=== PATIENT | female | born 1950 | race Caucasian/White ===

== ENCOUNTER 2019-03-20 09:20 | Day surgery (SDC) | payer OTHER ==
[2019-03-20] VITALS (10 sets, daily range): BP systolic 107–136; BP diastolic 59–79; PULSE 66–91; RESP 16–18; Ht 165.1 cm; Wt 94.6 kg
[~2019-03-20] VITALS: Ht 165.1 cm; Wt 94.6 kg
[2019-03-20] MEDS ORDERED: OXYC-431 PO (09:53)
[2019-03-20] MEDS ORDERED: METO-448 PO (09:54)
[2019-03-20] MEDS ORDERED: APIX5TAB PO (09:55)
[2019-03-20] MEDS ORDERED: CHOL100062 PO (09:55)
[2019-03-20] MEDS ORDERED: OMEG-135 PO (09:56)
[2019-03-20] MEDS ORDERED: DILT120C77 PO (09:56)
[2019-03-20] MEDS ORDERED: CEFAZOLIN 2 GM/50 ML (PMX) 50 ML IVPB SCH (10:30)
--- NOTE | 2019-03-20 11:24 | PREAC ---
Date/Time of Note Date/Time of Note DATE: 03/20/19 TIME: 11:22 Anesthesia Eval and Record Evaluation Time Pre-Procedure Interview DATE: 03/20/19 TIME: 11:22 Age 68 Sex female NPO: 8 hrs Preoperative diagnosis L5 compression fracture Planned procedure L5 vertebral augmentation/kyphoplasty Past Medical History Past Medical History: Includes Cardio: HTN, Arrythmia (atrial fibrillation) Endo: Other (hyperparathyroidism) Pulm: Smoking Hx, COPD, Other (history of lung cancer) GI: Obesity, Other (diverticulosis) Surgery & Anesthesia Issues No known issue Meds Anticoagulation: Yes Beta Lissa within 24 hr: Yes Reason Beta Lissa not given: Bradycarida, Hypotension Reported Medications [place]-3 Fatty Acids/Fish Oil (Fish Oil 1,000 mg Capsule) 1 Each Capsule, 1 EACH PO DAILY, CAP 03/20/19 Diltiazem Hcl* (Cardizem CD*) 120 Mg Cap.sr.24h, 120 MG PO DAILY, #30 CAP 03/20/19 Cholecalciferol* (Vitamin D3*) 1,000 Unit Tablet, 1000 UNIT PO DAILY, TAB 03/20/19 Apixaban* (Eliquis*) 5 Mg Tablet, 5 MG PO BID, TAB 03/20/19 Metoprolol Tartrate* (Lopressor*) 25 Mg Tab, 25 MG PO BID, #60 TAB 03/20/19 Oxycodone HCl/Acetaminophen (Oxycodone-Acetaminophen 10-325) 1 Each Tablet, 1 EACH PO Q6 PRN for PAIN, TAB 03/20/19 Current Medications Cefazolin Sodium/ Dextrose 50 ml @ 100 mls/hr PRE-OP IVPB ; Start 03/20/19 at 10:30; Stop 03/20/19 at 15:00 Meds reviewed: Yes Allergies Coded Allergies: No Known Allergy (Unverified , 03/20/19) Allergies Reviewed: Yes Labs/Studies Labs Reviewed: Reviewed by anesthesiologist Result Diagram: 03/20/19 1036 03/20/19 1036 Laboratory Tests 03/20/19 10:36 test: N/A Studies: ECG, CXR, Stress test Pre-procedure Exam Last vitals Vital Signs Date Temp Pulse Resp B/P (MAP) Pulse Ox O2 O2 Flow FiO2 Time Delivery Rate 03/20/19 97.1 91 16 120/77 94 Room Air 10:31 (91) Airway: Adequate mouth opening, Adequate thyromental dist Mallampati: Mallampati II Teeth: Normal Lung: Normal Heart: Normal ASA Physical Status ASA physical status: 3 Emergency: None Planned Anesthetic General/MAC: Mask Planned Pain Management Parenteral pain med, Local by surgeon Pre-operative Attestations Prior to commencing anesthesia and surgery, the patient was re-evaluated, there was verification of: *The patient's identity *The results of appropriate recent lab work and preoperative vital signs *The above evaluation not changing prior to induction *Anesthetic plan, risk benefits, alternative and complications discussed with patient/family; questions answered; patient/family understands, accepts and wishes to proceed. АНДРЕЙ NICOLAS MD Mar 20, 2019 11:24
[2019-03-20] MEDS ORDERED: PROCHLORPERAZINE 10 MG INJ IV PRN (11:30)
[2019-03-20] MEDS ORDERED: HYDROmorphONE 1 MG/5 ML IV SYRINGE IV PRN ×3 (11:30)
[2019-03-20] MEDS ORDERED: hydrALAzine 20 MG INJ IV PRN (11:30)
[2019-03-20] MEDS ORDERED: DIPHENHYDRAMINE 50 MG INJ IV PRN (11:30)
[2019-03-20] MEDS ORDERED: LABETALOL HCL 20MG INJ IV PRN (11:30)
[2019-03-20] MEDS ORDERED: BUPIVACAINE 0.5% (SDV) 30 ML INJ ONE (11:30)
[2019-03-20] MEDS ORDERED: MEPERIDINE 25 MG INJ IV PRN (11:30)
[2019-03-20] MEDS ORDERED: ONDANSETRON 4 MG INJ IV PRN (11:30)
[2019-03-20] MEDS ORDERED: FENTAnyl 50 MCG/ML VIAL IV PRN (11:30)
[2019-03-20] MEDS ORDERED: OXYCODONE/ACETAMINOPHEN (5/325) TAB PO PRN (11:30)
[2019-03-20] MEDS ORDERED: LIDOCAINE 1%/EPI 30 ML INJ ONE (11:30)
--- NOTE | 2019-03-20 11:48 | HPN ---
Date/Time of Note Date/Time of Note DATE: 03/20/19 TIME: 11:46 Interval H&P Admission Note Pt. seen H&P reviewed: Systems changes noted below Patient developed cough last week, diagnosed with bronchitis, no fevers. Had chest xray over weekend that showed no pneumonia per report. Put on ABX and feeling better now. The risks and benefits of the above surgery were again explained to the patient and her daughter at bedside and they wish to proceed with the surgery. VIJI CHINO MD Mar 20, 2019 11:48
[2019-03-20] MEDS ORDERED: MIDAZOLAM 1 MG/ML 2 ML INJ ONE (11:56)
[2019-03-20] MEDS ORDERED: IOHEXOL 300MG/ML 30 ML BTL ONE (12:14)
[2019-03-20] MEDS ORDERED: CEFAZOLIN 1 GM INJ ONE (12:18)
[2019-03-20] MEDS ORDERED: POLYMYXIN/BACITRACIN 1L IRRIG IRR ONE (12:32)
[2019-03-20] MEDS ORDERED: PROPOFOL 100 ML ONE (13:14)
--- NOTE | 2019-03-20 13:43 | PAC ---
Date/Time of Note Date/Time of Note DATE: 03/20/19 TIME: 13:43 Post-Anesthesia Notes Post-Anesthesia Note Last documented vital signs Vital Signs Date Temp Pulse Resp B/P (MAP) Pulse Ox O2 O2 Flow FiO2 Time Delivery Rate 03/20/19 98.1 13:37 03/20/19 91 16 120/77 94 Room Air 10:31 (91) Activity: WNL Respiratory function: WNL Cardiovascular function: WNL Mental status: Baseline Pain reasonably controlled: Yes Hydration appropriate: Yes Nausea/Vomiting absent: Yes Comments BP: 129/75 HR: 77 RR: 15 T: 98 SaO2: 96% АНДРЕЙ BRITT MD Mar 20, 2019 13:43
--- NOTE | 2019-03-20 13:44 | PDOCDIS ---
Discharge Instructions DIAGNOSIS Discharge Diagnosis L5 osteoporotic subacute compression fracture CONDITION [id number] Patient Condition: [id number] Good HOME CARE INSTRUCTIONS: [id number] Diet Instructions: [id number] Preop diet ACTIVITY: [id number] Activity Restrictions: [id number] Slowly Increase Activity Avoid heavy lifting (no lifting>25 lbs) Do not operate Machinery [id number] Bathing Restrictions: [id number] may shower tomorrow, keep incision clean/dry/intact FOLLOW UP/APPOINTMENTS Follow-up Plan 2-[address] Chino[facility] clinic. may remove bandaids on Tuesday. Activity as tolerated. VIJI CHINO MD Mar 20, 2019 13:44
--- NOTE | 2019-03-20 13:49 | SIPON ---
Date/Time of Note Date/Time of Note DATE: 03/20/19 TIME: 13:47 Operative Report Preoperative Diagnosis Osteoporotic subacute L5 compression fracture Postoperative Diagnosis Osteoporotic subacute L5 compression fracture Operation/Procedure Performed L5 vertebral augmentation ([employer] Synthes kyphoplasty system, 4cc cement) Surgeon see signature line biology laboratory assistant None Anesthesia: MAC Estimated blood loss: minimal Transfusion Required none Specimen None Grafts/Implants See op report Complications none VIJI CHINO MD Mar 20, 2019 13:48
--- NOTE | 2019-03-20 23:46 | OPR ---
Date/Time of Note Date/Time of Note DATE: 03/20/19 TIME: 23:46 Operative Report Procedure Date: Mar 20, 2019 Preoperative Diagnosis Please see below. Postoperative Diagnosis Please see below. Operation/Procedure Performed Please see below. Surgeon see signature line Senior Information Systems Architect None Anesthesia Type: MAC Estimated Blood Loss: minimal Transfusion none Specimen None Grafts/Implants Please see below. Tubes/Drains None Complications none Pt Condition Post Procedure: stable Disposition: PACU Indications Please see below. Procedure Description Date of operation: 03/20/2019 Operating surgeon: Viji Chino M.D. Preoperative diagnosis: L5 subacute compression fracture Post operative diagnosis: L5 subacute compression fracture Procedure(s) performed: 1. L5 vertebral augmentation/kyphoplasty ([employer] Synthes kyphoplasty system) 2. Intraoperative fluoroscopy with professional interpretation Indication for procedure: This is a 68-year-old female who reportedly sustained a fall while she was being transported on the hospital bed at another institution approximately 8 or 9 months ago when she was being treated for a gastrointestinal pathology at the time. Since then the patient has had intractable axial low back pain that has not been responsive to conservative management and the patient has remained on narcotic medications without significant relief. She was found to have an L5 compression fracture of acute/subacute nature on her follow-up imaging studies. The patient has been seen in my office in a clinic setting with the presence of her family and various treatment options including continued observation, physical therapy versus neurosurgical intervention including L5 kyphoplasty have been discussed with them in detail. The patient had decided to proceed with the above surgery previously and she had been scheduled at the ambulatory surgery center according to the patient's health plan. However given the patient's overall other comorbidities her surgery was canceled at the ambulatory surgery center by anesthesiology. Authorization was obtained to perform the surgery at [facility] after the patient was cleared fully by her primary care physician and cardiology. The risks and benefits of the above operation were expending great detail to the patient and her daughter at bedside in the preoperative area again. The patient and her daughter fully understand that even with the above operation it is possible that her low back pain may still not be resolved. The patient also has hyperparathyroidism and osteoporosis that further make treating her symptomatology more challenging. The risks and benefi ts of the above operation were again explained in detail to the patient and her daughter with the risks including bleeding, infection, weakness, numbness, paralysis, bowel or bladder dysfunction, injury to the surrounding tissues, failure of improvement of symptoms or worsening of symptoms, need for further surgeries including decompressive lumbar surgery and instrumented fusion as well as those risks associated with surgery and general anesthesia including deep venous thrombosis, probably embolism, heart attack, stroke and . The patient and her daughter understand the above discussion and wish to proceed with the above surgery. Description of operative procedure: Patient was brought to the operating room and asked to help position herself in the prone position on several pillows in a comfortable position to her. All pressure points were noted and padded appropriately. Conscious sedation/monitored anesthesia care was established by anesthesia. The midline lumbar spine was located. Then vertical paraspinal lumbar lines approximately 3-1/2-4 cm lateral to midline on each side was marked. After the skin was prepped and draped under standard sterile fashion, the pedicle entry points of L5 were located under AP fluoroscopy. The patient's L5 vertebral body was severely collapsed centrally more than laterally close to the pedicles in a concave fashion. Lateral fluoroscopy also showed obvious diffuse osteopenia/osteoporosis of her vertebral bodies making visualization of the L5 vertebral body difficult. Using collimation techniques we were able to visualize the L5 severe compression fracture better. Local anesthetics were infiltrated into the skin at the entry point of the L5 pedicles bilaterally along the bilateral paraspinal lumbar lines previously marked. A small stab incision was made at this site bilaterally. The Jamshidi needles were inserted under a combination of AP and lateral fluoroscopy until the tip of the Jamshidi needle was at the pedicle vertebral body junction bilaterally. Another AP fl uoroscopy was taken to confirm that the medial wall of the pedicles was not breached. The Jamshidi needles were then further advanced into the vertebral bodies under direct lateral fluoroscopy. The inner cannula was removed. The drill was inserted at one side followed by the other side under direct lateral fluoroscopy and a cavity was created into the vertebral body close to the anterior L5 vertebral body on each side. The bone density overall appeared to be quite dense more than would be expected for a more acute compression fracture. Next the small kyphoplasty balloon was inserted on one side followed subsequently by the other side under AP and lateral fluoroscopy and slowly inflated. The inflation pressure appeared to remain high after injecting about 3-4 cc of contrast into the balloon and the balloon seem to want to expand more laterally rather than medially. Therefore the balloon was not inflated any further. Next a total of 4 cc of kyphoplasty cement was able to be injected through the bilateral cannulas. Similar to the manner of expansion of the balloon, most of the cement material appeared to want to fill the lateral parts of the vertebral body and not much of the medial part of the vertebral body indicating probable healing of the central part of the compression fracture. In order to prevent filling of the veins or the canal, no more cement was injected. The Jamshidi needles were then removed without any visualized tells under direct lateral fluoroscopy. The wounds were irrigated with antibiotic solution. The skin was reapproximated with Dermabond. A sterile dressing was placed on top of each of the incision sites. The patient was then placed supine on the hospital bed, woken up and transported to the recovery room in stable condition. The patient was awake, alert and moving her upper and lower extremities equally per her preoperative baseline in the recovery room. Estimated blood loss: Less than 5 cc Blood products administered: None Packs/drains: None Type of anesthesia: Conscious sedation/monitored anesthesia care Incision: Bilateral paraspinal lumbar stab incisions Skin closure: Dermabond Wound classification: Clean Specimen removed: None Patient's condition: Stable Prognosis: Good VIJI CHINO MD Mar 20, 2019 23:46
--- NOTE | 2019-03-24 16:13 | RADRPT ---
Vent Rate: 79 bpm RR Interval: 759 msec FL Interval: [id number] msec QRS Duration: 139 msec QT Interval: 377 msec QTC Interval: 433 msec P-R-T [place]: [id number] - 51 - -3 degrees Atrial fibrillation...V-rate 59- 96, irreg A-activity Right bundle branch block...QRSd>120, terminal axis(90,270) Electronically Signed By: Golden Upton
== END 2019-03-20 14:55 | disposition home or self-care (01) ==
LOC: SDS 09:20
PROVIDERS: ATTEND Neurological Surgery
DX: M48.56XA Collapsed vertebra, not elsewhere classified, lumbar region, initial encounter for fracture (principal); M54.5 Low back pain; I10 Essential (primary) hypertension; I48.91 Unspecified atrial fibrillation; J44.9 Chronic obstructive pulmonary disease, unspecified; F17.200 Nicotine dependence, unspecified, uncomplicated
CPT/HCPCS: 22514; 72110; 80053; 85025; 85610; 85730; 93005; J0690; J1170; J2250; J2405; J3010; Q9967